=== PATIENT | male | born 1980 | race Caucasian/White ===

== ENCOUNTER → 2019-11-26 13:35 | Outpatient (BNVA) | payer OTHER, SELFPAY | PROVIDERS: Family Provider Nurse Practitioner Family; PCP Nurse Practitioner Family; Referring Provider Emergency Medicine Emergency Medical Services; Visit Provider Podiatrist Foot & Ankle Surgery | DX: M79.671 Pain in right foot (principal); M79.672 Pain in left foot; M25.872 Other specified joint disorders, left ankle and foot | CPT/HCPCS: 73630 ==

== ENCOUNTER 2019-12-18 09:24 | Outpatient (CLI) | payer OTHER, SELFPAY ==
--- NOTE | 2019-12-18 09:29 | MR_ITS ---
WS: [id number] MRI LEFT ANKLE NONCONTRAST TECHNIQUE: Sagittal proton density, sagittal STIR, axial proton density, axial T1, axial T2 fat sat, coronal proton density, coronal proton density fat sat, coronal T2 fat sat. CLINICAL INFORMATION: LEFT ANKLE PAIN COMPARISON: None. FINDINGS: Postoperative changes plate and screw fixation involving the mid to distal fibula with susceptibility artifact. This degrades images of the ankle mortise. 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 Talar dome is normal. No evidence of avascular necrosis. Normal talocalcaneal articulation. An terior process of the calcaneus is normal. Normal talar neck. Small amount of fluid in the posterior talar recess. Tiny plantar calcaneal spur. Achilles enthesophy te. Achilles tendon is normal in appearance. Normal cuboid and cuneiforms. Normal talar navicular art iculation. Plantar aponeurosis normal in appearance. Peroneal tendons are obscured due to susceptibility artifact from hardware. Normal appearing extensor and flexor tendons where visualized. Well-corticated chronic appearing avulsion medial malleolus. La teral malleolus appears normal. Normal ATF. Tenosynovitis along the flexor hallucis longus. MR/MR ankle LT wo con* [id number] IMPRESSION: 1. Postoperative changes plate and screw fixation distal fibula and lateral ma lleolus partially obscures images of the ankle mortise due to susceptibility ar tifact. 2. Well-corticated avulsion about the medial malleolus appears chronic. Small amount of subchondral cystic change in the residual medial malleolus likely deg enerative. 3. Mild degenerative arthritis at the ankle mortise. Normal talar dome. 4. Tenosynovitis involving the flexor hallucis longus. 5. Achilles appears normal. 6. Small plantar calcaneal spur. Small Achilles enthesophyte. 7. No other significant findings.
== END 2019-12-18 09:25 | disposition home or self-care (01) ==
LOC: RADWPI 09:28
PROVIDERS: Family Provider Nurse Practitioner Family; PCP Nurse Practitioner Family; Visit Provider Podiatrist Foot & Ankle Surgery
DX: M25.572 Pain in left ankle and joints of left foot (principal); M77.32 Calcaneal spur, left foot; M65.872 Other synovitis and tenosynovitis, left ankle and foot; M19.072 Primary osteoarthritis, left ankle and foot
CPT/HCPCS: 73721

== ENCOUNTER 2021-08-02 12:29 | Day surgery (SDC) | payer OTHER, SELFPAY ==
[2021-08-02 13:09] VITALS: BP 128/80; PULSE 77; RESP 18; TEMP 36.1; O2SAT 97; BMI 41.6
[2021-08-02 13:47] VITALS: BP 152/98; PULSE 73; RESP 16; TEMP 36.7; O2SAT 99
[2021-08-02 15:14] VITALS: BP 142/95; PULSE 76; RESP 18; TEMP 36.7
== END 2021-08-02 15:20 | disposition home or self-care (01) ==
PROVIDERS: Visit Provider Nurse Practitioner Family
DX: U07.1 COVID-19 (principal)

== ENCOUNTER → 2021-11-15 08:15 | Outpatient (BNVA) | payer OTHER, SELFPAY | PROVIDERS: PCP Family Medicine; Referring Provider Emergency Medicine Emergency Medical Services; Visit Provider Specialist | DX: E11.42 Type 2 diabetes mellitus with diabetic polyneuropathy (principal); Z79.84 Long term (current) use of oral hypoglycemic drugs; R53.83 Other fatigue | CPT/HCPCS: 82607; 83036; 83921; 84443; 85651; 86140; 86334; 86431; 95886; 95909; 99202 ==

== ENCOUNTER → 2023-12-21 08:16 | Outpatient (BNVA) | payer OTHER, SELFPAY | PROVIDERS: PCP Family Medicine; Visit Provider Podiatrist Foot & Ankle Surgery | DX: M79.672 Pain in left foot (principal); M25.572 Pain in left ankle and joints of left foot; G62.9 Polyneuropathy, unspecified; E11.42 Type 2 diabetes mellitus with diabetic polyneuropathy; M19.072 Primary osteoarthritis, left ankle and foot; Z79.84 Long term (current) use of oral hypoglycemic drugs | CPT/HCPCS: 73610; 73620; 73630; 99203 ==

== ENCOUNTER → 2024-06-27 07:58 | Outpatient (BNVA) | payer OTHER, SELFPAY | PROVIDERS: PCP Family Medicine; Visit Provider Podiatrist Foot & Ankle Surgery | DX: M95.8 Other specified acquired deformities of musculoskeletal system (principal); G62.9 Polyneuropathy, unspecified; E11.42 Type 2 diabetes mellitus with diabetic polyneuropathy; M19.072 Primary osteoarthritis, left ankle and foot | CPT/HCPCS: 99213 ==

== ENCOUNTER 2024-07-02 13:29 | Outpatient (CLI) | payer OTHER, SELFPAY ==
--- NOTE | 2024-07-02 13:45 | MRR_ITS ---
PROCEDURE INFORMATION: Exam: MR Left Lower Extremity Joint Without Contrast; Ankle Exam date and time: 07/02/2024 1:42 PM Age: 44 years old Clinical indication: Prior surgery; Surgery date: 6+ months; Surgery type: Orif ankle 2001; Patient HX: Chronic left ankle pain with HX of left ankle orif 2001; Additional info: Ocd of left ankle TECHNIQUE: Imaging protocol: Magnetic resonance imaging of the left lower extremity without contrast. Exam focused on the ankle. COMPARISON: MR ankle LT wo con* [id number] 12/18/2019 9:21 AM FINDINGS: Bones/joints: Magnetic susceptibility artifact from surgical hardware at the lateral malleolus. Multiple small subchondral cysts in the distal aspect of the medial malleolus and in an adjacent 9 mm corticated ossicle, similar to 12/18/2019. No visible bone marrow edema. Bone marrow signal intensity is partially obscured by magnetic susceptibility artifact at the lateral malleolus. There are small dorsal osteophytes at the talonavicular joint. No joint effusions. No focal chondral defect or osteochondral lesion is seen in the talus or tibial plafond. There are tiny subchondral cysts in the posterior margin of the tibial plafond. There is mild partial-thickness chondral loss in the medial aspect of the tibiotalar joint. LIGAMENTS: Distal tibiofibular syndesmosis: Unremarkable. No tear. Anterior talofibular ligament: Anterior talofibular ligament is intact. Posterior talofibular ligament: Posterior talofibular ligament is intact. Calcaneofibular ligament: Calcaneofibular ligament is intact. Deltoid ligament complex: Posterior aspect of the deltoid ligament is intact. The tibionavicular portion of the anterior deltoid ligament is not visible. TENDONS: Flexor tendons of foot: There is mild fluid distension of the flexor hallucis longus tendon sheath in the midfoot. Tibialis posterior tendon: Unremarkable as visualized. Peroneal tendons: Unremarkable as visualized. Extensor tendons of foot: Unremarkable as visualized. Tibialis anterior tendon: Unremarkable as visualized. Achilles tendon: Achilles tendon is normal. Tarsal canal (Sinus tarsi): Tarsal sinus is normal. Tarsal tunnel: Tarsal tunnel is normal. Soft tissues: Unremarkable. Plantar fascia: Plantar fascia is normal. MR/MR ankle LT wo con* [id number] IMPRESSION: 1. No full-thickness chondral defect. No osteochondral lesions. 2. 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 3. Mild flexor hallucis longus tenosynovitis. 4. 9 mm ossicle inferior to the medial malleolus, similar to 12/18/2019. Possible accessory ossification center and degeneration of the synchondrosis with the medial malleolus versus sequelae of healed fracture.
== END 2024-07-02 13:30 | disposition home or self-care (01) ==
LOC: RAD 13:29
PROVIDERS: PCP Family Medicine; Visit Provider Podiatrist Foot & Ankle Surgery
DX: M95.8 Other specified acquired deformities of musculoskeletal system (principal); S93.422A Sprain of deltoid ligament of left ankle, initial encounter; M65.872 Other synovitis and tenosynovitis, left ankle and foot; R93.6 Abnormal findings on diagnostic imaging of limbs; Z98.890 Other specified postprocedural states; M25.772 Osteophyte, left ankle; X58.XXXA Exposure to other specified factors, initial encounter
CPT/HCPCS: 73721

== ENCOUNTER → 2024-09-04 08:07 | Outpatient (BNVA) | payer OTHER, SELFPAY | PROVIDERS: PCP Family Medicine; Visit Provider Podiatrist Foot & Ankle Surgery | DX: M19.072 Primary osteoarthritis, left ankle and foot (principal); G62.9 Polyneuropathy, unspecified; M95.8 Other specified acquired deformities of musculoskeletal system; E11.42 Type 2 diabetes mellitus with diabetic polyneuropathy; Z79.84 Long term (current) use of oral hypoglycemic drugs | CPT/HCPCS: 99214 ==

== ENCOUNTER → 2024-09-17 08:50 | Outpatient (BNVA) | payer OTHER, SELFPAY | PROVIDERS: PCP Family Medicine; Visit Provider Podiatrist Foot & Ankle Surgery | DX: E11.9 Type 2 diabetes mellitus without complications (principal) | CPT/HCPCS: 83036 ==

== ENCOUNTER 2024-09-23 05:09 | Day surgery (SDC) | payer OTHER, SELFPAY ==
[2024-09-23] VITALS (11 sets, daily range): BP systolic 116–143; BP diastolic 68–105; PULSE 60–74; RESP 17–20; TEMP 36.1–36.8; O2SAT 93–99; BMI 41.9
[2024-09-23] MEDS: CELEcoxib 200 mg Capsule 400 MG PO (06:02)
[2024-09-23] MEDS: gabapentin 300 mg Capsule PO (06:02)
[2024-09-23 06:13] LABS: Glucose Point of Care 126 mg/dL (70-110)
--- NOTE | 2024-09-23 06:51 | P.HPUD_ITS ---
Surgery/Procedure H&P Update DATE OF PROCEDURE: September 23, 2024 DATE H&P PERFORMED: 09/04/24 H&P UPDATE INFORMATION: I have reviewed H&P completed within last 30 days, I have examined patient prior to procedure, No changes to prior documentation, H&P is in [facility] EMR on date indicated and Risks and benefits of the procedure reviewed PREOP DIAGNOSIS: Loose body left ankle PLANNED PROCEDURE: Operation Date: 09/23/24 07:00 Proposed Procedures p Ankle Arthrotomy(Left) - Abiel Restrepo DPM s removal of loose body(Left) - Abiel Restrepo DPM
[2024-09-23] MEDS: ceFAZolin 2,000 mg SDV 2000 MG IVP (07:00)
[2024-09-23] MEDS: ceFAZolin 1,000 mg SDV 1000 MG IVP (07:00)
--- NOTE | 2024-09-23 07:00 | ANES.PREANE2 ---
Pre-Anesthetic Assessment Height/Weight: Height 1.83 m Weight 140.16 kg Temp Pulse Resp BP Pulse Ox O2 Del Method 97.7 F 67 18 126/86 96 Room Air 09/23/24 06:07 09/23/24 06:07 09/23/24 06:07 09/23/24 06:07 09/23/24 06:07 09/23/24 06:07 Preop Diagnosis: Loose body left ankle Operation Date: 09/23/24 07:00 Proposed Procedures p Ankle Arthrotomy(Left) - Abiel Restrepo DPM s removal of loose body(Left) - Abiel Restrepo DPM Was Beta Lizzie taken within 24 hours: N/A Was Clonidine taken within 24 hours: N/A Last intake: Intake Last Liquid Date 09/22/24 Last Liquid Time 23:00 Last Solid Date 09/22/24 Last Solid Time 19:45 Social Tobacco smokes daily weed Exam alert, oriented x 3, clear to auscultation bilaterally and regular rate & rhythm Airway Submandibular: within normal limits Cervical ROM: within normal limits Mallampati: Class II Dentition: full History/ROS No significant history except as noted and No significant complaints CV/HEM None reported None reported Hepatic None reported GI None reported Metabolic Diabetes Mellitus and Morbid [place] [facility] [place] None reported Neuropsych Anxiety Anesthetic Plan ASA status: 3 Anesthesia: Anesthesia Evaluation and General Risk of > 500 ml blood loss (7ml/kg in children): No Medications/Allergies Home Medications ?Medication ?Instructions ?Recorded ?Confirmed ?Last Taken ?Type cholecalciferol (vitamin D3) 1 tab PO DAILY 11/26/19 09/19/24 09/22/24 17:00 History fluoxetine 20 mg capsule 20 mg PO DAILY 11/26/19 09/19/24 09/22/24 17:00 History metformin 1,000 mg tablet 500 mg PO DAILY 11/26/19 09/19/24 09/22/24 17:00 History naproxen 500 mg tablet 500 mg PO BID 11/26/19 09/19/24 09/22/24 17:00 History custom orthotics #1 ea 12/24/19 09/04/24 09/22/24 17:00 Rx cinnamon bark 500 mg capsule 500 mg PO DAILY 08/02/21 09/19/24 09/22/24 17:00 History duloxetine 20 mg capsule,delayed 20 mg PO BID 11/15/21 09/19/24 09/22/24 17:00 History release echinacea 380 mg capsule 380 mg PO DAILY 11/15/21 09/19/24 09/22/24 17:00 History multivitamin 1 tab PO DAILY 11/15/21 09/19/24 09/22/24 17:00 History ketoconazole 2 % topical cream 1 applic topical BID #60 grams 07/04/22 09/04/24 09/22/24 17:00 Rx hydrocodone 5 mg-acetaminophen 325 1 tab PO Q6H PRN pain #20 tabs 09/23/24 Unknown Rx mg tablet Allergies Allergy/AdvReac Type Severity Reaction Status Date / Time atorvastatin Allergy ADR-Blurry Verified 09/23/24 05:57 Vision PFSH Anesthesia Medical History Diabetes mellitus Surgical History Hx of foot surgery Family History Other CAD (coronary artery disease) Diabetes Hypertension Denies family history of Stroke Social History Smoking and tobacco/nicotine status: never used tobacco/nicotine Alcohol intake: never Substance/Drug Use: never Current occupational status: employed Current occupation: [email or web address] Anesthesia Cardiac Studies: No Data to Display
--- NOTE | 2024-09-23 07:03 | P.ANESASSM_ITS ---
Pre-Anesthetic Assessment Height/Weight: Height 1.83 m Weight 140.16 kg Temp Pulse Resp BP Pulse Ox O2 Del Method 97.7 F 67 18 126/86 96 Room Air 09/23/24 06:07 09/23/24 06:07 09/23/24 06:07 09/23/24 06:07 09/23/24 06:07 09/23/24 06:07 Preop Diagnosis: Loose body left ankle Operation Date: 09/23/24 07:00 Proposed Procedures p Ankle Arthrotomy(Left) - Abiel Restrepo DPM s removal of loose body(Left) - Abiel Restrepo DPM Last intake: Intake Last Liquid Date 09/22/24 Last Liquid Time 23:00 Last Solid Date 09/22/24 Last Solid Time 19:45 Social No alcohol and No tobacco Exam alert, oriented x 3, clear to auscultation bilaterally and regular rate & rhythm Airway Submandibular: within normal limits Cervical ROM: within normal limits Mallampati: Class I Metabolic Diabetes Mellitus and Morbid Obesity Anesthetic Plan ASA status: 3 Anesthesia: General Medications/Allergies Home Medications ?Medication ?Instructions ?Recorded ?Confirmed ?Last Taken ?Type cholecalciferol (vitamin D3) 1 tab PO DAILY 11/26/19 0 09/19/24 09/22/24 17:00 History fluoxetine 20 mg capsule 20 mg PO DAILY 11/26/1909/1009/22/24 17:00 History metformin 1,000 mg tablet 500 mg PO DAILY 11/26/1904/0509/22/24 17:00 His tory naproxen 500 mg tablet 500 mg PO BID 11/26/1909/1909/22/24 17:00 History custom orthotics #1 ea 12/24/19 09/04/2409/10 17:00 Rx cinnamon bark 500 mg capsule 500 mg PO DAILY 08/02/21 09/19/24 09/22/24 17:00 History duloxetine 20 mg capsule,delayed 20 mg PO BID 11/15/21 09/19/24 09/22/24 17:00 History release echinacea 380 mg capsule 380 mg PO DAILY 11/15/2104/0509/22/24 17:00 History multivitamin 1 tab PO DAILY 11/15/2109/1009/22/24 17:00 History ketoconazole 2 % topical cream 1 applic topical BID #6 0 grams 07/04/22 09/04/24 09/22/24 17:00 Rx hydrocodone 5 mg-acetaminophen 325 1 tab PO Q6H PRN pa in #20 tabs 09/23/24 Unknown Rx mg tablet Allergies Allergy/AdvReac Type Severity Reaction Status Date / Time atorvastatin Allergy ADR-Blurry Verified 09/23/24 05:57 Vision [facility] Anesthesia Medical History Diabetes mellitus Surgical History Hx of foot surgery Family History Other CAD (coronary artery disease) Diabetes Hypertension Denies family history of Stroke Social History Smoking and tobacco/nicotine status: never used tobacco/nicotine Alcohol intake: never Substance/Drug Use: never Current occupational status: employed Current occupation: [email or web address] Anesthesia Cardiac Studies: No Data to Display
[2024-09-23] MEDS: sodium chloride 0.9% 1,000 ML 30 ML IV (07:05)
[2024-09-23] MEDS: BUPivacaine 0.5% INJ 30 mL INJECTION (07:38)
--- NOTE | 2024-09-23 08:05 | P.BOP_ITS ---
Date of procedure: 09/23/2024 Surgeon name: Dina MorelandPMelanie Human Resources Operations Specialist(s) name(s): Shawn Procedure(s) performed: Left ankle arthrotomy with excision of loose body Description of findings: Left medial malleolus loose body Estimated blood loss: 5 cc Tourniquet time: 20 minutes Specimen(s) removed: Bone left ankle Post-operative diagnosis: Loose body left ankle
--- NOTE | 2024-09-23 08:06 | P.OP_ITS ---
Operative Report Date of procedure: September 23, 2024 Surgeon: Abiel Restrepo DPM Procedure: Date of procedure: 09/23/2024 Pre-op diagnosis: Left ankle loose body Post-op diagnosis: Same Post-op findings: Intra-articular loose body left ankle, old fracture fragment Procedure done: Left ankle arthrotomy with excision loose body CPT 57309 Implants: None Specimens removed: Bone left ankle Surgeon: Dr. Abiel Restrepo DPM Utility Supervisor [employer]: Shawn Estimated blood loss: 5 cc Tourniquet time: 28 minutes Complications: None Patient is a 44-year-old male that has a history of left ankle pain. The patient has had the aforementioned chief complaint for some time. Conservative treatment measures have been attempted and the patient has opted for surgical intervention at this time. A lengthy discussion regarding the procedure, including risks and complications has been had with the patient and is noted in the recent clinic note. Written and verbal consent have been obtained. All patient questions have been answered to the patient?s satisfaction. No written or verbal guarantees have been given or implied. The patient has been NPO since midnight. The history has been reviewed and the history and physical is current. The signed consent was confirmed and placed in the patient chart. Patient imaging has been reviewed and is consistent with the diagnosis. Under mild sedation, the patient was brought into the operating room and placed on the table in the supine position. IV antibiotics were given by the anesthesia team as preoperative surgical prophylaxis. General sedation was then performed by the anesthesiateam. A pneumatic tourniquet was then placed about the left thigh. A local field block using 0.5% Marcaine plain was performed. The operative extremity was then prepped and draped in the usual fashion. The extremity was then elevated and exsanguinated before the tourniquet was inflated to 325 mmHg. After inflation, the following procedure was then performed. Attention was directed to the medial aspect the left ankle. Prior incision was made approximately 6 cm using a #15 blade. Dissection was carried down through subcutaneous the superficial fascia to the level of the deltoid ligament. This was incised and reflected anteriorly off the distal tibia to expose the underlying ankle joint. A loose body was visualized distal to the medial malleolus within the medial gutter of the ankle joint. A #15 blade was used to dissect circumferentially around the loose body and it was removed from the operative field. It was bony in appearance with the appearance of an old fracture fragment. Measuring 1.5 cm circumferentially. Medial wall of talar body was visualized and did not show any signs of erosive degeneration. No remaining foreign body remained. Site was irrigated with copious amounts of sterile saline before attention was directed to closure. Deep tissue was closed with 2-0 Vicryl followed by subcuticular closure with 4-0 Vicryl and skin closure with 3-0 nylon in horizontal mattress fashion. The tourniquet was let down good hyperemic response was noted to all digits of the left foot. The incision site was dressed with Xeroform, 4 x 4 gauze, Kerlix, Nehemiah. Patient was placed in a cam boot. The patient tolerated the procedure and anesthesia well and without complication. The patient was transported from the operating room to the recovery room with vital signs stable and vascular status intact to all digits of the left foot. The patient was given both written and verbal instructions to remain weightbearing as tolerated in cam boot to the operative extremity, to keep dressings/splint clean, dry and intact and to take pain medication as directed. The patient will follow-up in the outpatient setting at their scheduled appointment. The patient was discharged with my personal number and was instructed to call if any questions or issues should arise. They were discharged home once anesthesia criteria was met.
--- NOTE | 2024-09-23 13:11 | P.ANESPOST_ITS ---
Inpatient post-anesthesia follow up: Vital signs: Temperature 97.0 F Pulse Rate 66 Respiratory Rate 17 Blood Pressure 120/70 Pulse Oximetry 98 Oxygen Delivery Me thod Room Air Oxygen Flow Rate Fraction of Inspir ed Oxygen Hydration adequate: Yes Nausea and vomiting: No Pain level: Con trolled Mental status: Baseline
--- NOTE | 2024-09-23 16:36 | XR_ITS ---
WS: [id number] Left ankle, C-arm fluoroscopy views, 09/23/2024 Clinical Data: Left ankle arthrotomy with excision of loose body Comparison: Left ankle, 12/21/2023 Findings: Dr. Restrepo resected the bony fragment inferior to the medial malleolus. XR/XR ankle LT min 3V* [id number] Impression: Resection of bony fragment from medial left ankle.
== END 2024-09-23 09:10 | disposition home or self-care (01) ==
PROVIDERS: PCP Family Medicine; Visit Provider Podiatrist Foot & Ankle Surgery
PROC: (CPT 27610; principal; 2024-09-23 07:00)
PROC: (CPT 27610; 2024-09-23 07:00)
DX: M24.072 Loose body in left ankle (principal); E11.42 Type 2 diabetes mellitus with diabetic polyneuropathy; M19.072 Primary osteoarthritis, left ankle and foot; M95.8 Other specified acquired deformities of musculoskeletal system; F41.9 Anxiety disorder, unspecified; Z68.41 Body mass index [BMI] 40.0-44.9, adult; E66.01 Morbid (severe) obesity due to excess calories; Z79.84 Long term (current) use of oral hypoglycemic drugs; Z79.899 Other long term (current) drug therapy; Z88.8 Allergy status to other drugs, medicaments and biological substances
CPT/HCPCS: 27610; 36416; 73610; 76000; 82962; 88307; 88311; J0131; J0690; J1100; J2405; J2704; J3010; J3490; J7030; J9999

== ENCOUNTER → 2024-09-30 13:57 | Outpatient (BNVA) | payer OTHER, SELFPAY | PROVIDERS: PCP Family Medicine; Visit Provider Podiatrist Foot & Ankle Surgery | DX: Z09 Encounter for follow-up examination after completed treatment for conditions other than malignant neoplasm (principal); G62.9 Polyneuropathy, unspecified; M19.072 Primary osteoarthritis, left ankle and foot; M95.8 Other specified acquired deformities of musculoskeletal system; E11.42 Type 2 diabetes mellitus with diabetic polyneuropathy; Z79.84 Long term (current) use of oral hypoglycemic drugs | CPT/HCPCS: 99024 ==

== ENCOUNTER → 2024-10-07 14:25 | Outpatient (BNVA) | payer OTHER, SELFPAY | PROVIDERS: PCP Family Medicine; Visit Provider Podiatrist Foot & Ankle Surgery | DX: Z09 Encounter for follow-up examination after completed treatment for conditions other than malignant neoplasm (principal); E11.42 Type 2 diabetes mellitus with diabetic polyneuropathy; M19.072 Primary osteoarthritis, left ankle and foot; M95.8 Other specified acquired deformities of musculoskeletal system | CPT/HCPCS: 99024 ==

== ENCOUNTER → 2024-10-21 13:58 | Outpatient (BNVA) | payer OTHER, SELFPAY | PROVIDERS: PCP Family Medicine; Visit Provider Podiatrist Foot & Ankle Surgery | DX: M25.572 Pain in left ankle and joints of left foot (principal); M77.52 Other enthesopathy of left foot and ankle; Z09 Encounter for follow-up examination after completed treatment for conditions other than malignant neoplasm; G62.9 Polyneuropathy, unspecified; E11.9 Type 2 diabetes mellitus without complications; M19.072 Primary osteoarthritis, left ankle and foot; M95.8 Other specified acquired deformities of musculoskeletal system; E11.42 Type 2 diabetes mellitus with diabetic polyneuropathy; Z79.84 Long term (current) use of oral hypoglycemic drugs | CPT/HCPCS: 99024 ==